=== PATIENT | male | born 1965 | race Caucasian/White ===

== ENCOUNTER 2018-06-27 05:57 | Day surgery (SDC) | payer OTHER ==
[~2018-06-27 05:57] MED LIST: LOTREL 5-20 MG1 CAP PO; PREVACID30 M1 PO; PROVASTATIN PO; ZANTAC300 MG PO
[2018-06-27] MEDS ORDERED: RECTICARE30 GM TOP (08:39)
[2018-06-27] MEDS ORDERED: PERCOCET 5-3251 EACH PO (08:39)
[2018-06-27] MEDS ORDERED: ULTRACET PO (10:12)
== END 2018-06-27 17:30 | disposition home or self-care (01) ==
LOC: CIR.AMB 05:57
DX: K64.2 Third degree hemorrhoids (principal)

== ENCOUNTER 2022-01-22 08:49 | Day surgery (SDC) | payer OTHER ==
[~2022-01-22 08:49] MED LIST changes: +PERCOCET 5-3251 EACH PO; +RECTICARE30 GM TOP; +ULTRACET PO; +[UNRECOGNIZED DRUG - OTHER] PO
== END 2022-01-22 14:45 | disposition home or self-care (01) ==
LOC: CIR.AMB 08:49
PROVIDERS: ATTEND Orthopaedic Surgery
DX: M77.11 Lateral epicondylitis, right elbow (principal); M24.821 Other specific joint derangements of right elbow, not elsewhere classified; M67.931 Unspecified disorder of synovium and tendon, right forearm; Z88.8 Allergy status to other drugs, medicaments and biological substances; Z20.822 Contact with and (suspected) exposure to COVID-19; I10 Essential (primary) hypertension; Z86.16 Personal history of COVID-19; E11.9 Type 2 diabetes mellitus without complications; B19.10 Unspecified viral hepatitis B without hepatic coma

== ENCOUNTER → 2023-06-10 10:06 | Outpatient (CLI) | payer OTHER | END | disposition home or self-care (01) | LOC: NUCLEAR 06-03 11:00 | PROVIDERS: ATTEND Internal Medicine | DX: I73.9 Peripheral vascular disease, unspecified (principal); I87.2 Venous insufficiency (chronic) (peripheral); I82.409 Acute embolism and thrombosis of unspecified deep veins of unspecified lower extremity ==

== ENCOUNTER → 2023-06-11 10:12 | Outpatient (CLI) | payer OTHER | END | disposition home or self-care (01) | LOC: NUCLEAR 06-04 11:00 | DX: I73.9 Peripheral vascular disease, unspecified (principal); I87.2 Venous insufficiency (chronic) (peripheral); I82.409 Acute embolism and thrombosis of unspecified deep veins of unspecified lower extremity ==

== ENCOUNTER 2024-07-27 12:00 | Outpatient (CLI) | payer OTHER ==
[2024-07-27 13:11] LABS: HEMATOCRIT 42.8 % (39.0-48.0); HEMOGLOBIN 14.8 g/dL (13-16.00); MEAN CELL VOLUME 88.8 fL (80.0-100.00); MEAN CORPUSCULAR HEMOGLOBIN 30.6 pg (27.00-32.0); MEAN CORPUSCULAR HGB CONC 34.5 g/dl (32.0-36.0); PLATELET COUNT 200 K/uL (150-450); RED BLOOD COUNT 4.82 M/uL (4.00-6.00); RED CELL DISTRIBUTION WIDTH 12.9 % (11.5-14.5)
[2024-07-27 13:27] LABS: ALBUMIN 3.7 gm/dL (3.4-5.0); BILIRUBIN TOTAL 0.82 mg/dL (0.3-1.2); CALCIUM 9.8 mg/dL (8.5-10.1); CREATININE SERUM 1.18 mg/dL (0.70-1.30); GFR 62.97; GLOBULINA 3.3 G/DL (2.4-3.5); POTASSIUM 4.33 mEq/L (3.5-5.1)
== END 2024-07-27 12:13 | disposition home or self-care (01) ==
LOC: LAB 12:00
PROVIDERS: ATTEND Internal Medicine
DX: D50.9 Iron deficiency anemia, unspecified (principal); E11.9 Type 2 diabetes mellitus without complications

== ENCOUNTER 2024-07-27 12:58 | Outpatient (CLI) | payer OTHER | END 2024-07-27 13:07 | disposition home or self-care (01) | LOC: RAD 12:58 | PROVIDERS: ATTEND Internal Medicine | DX: K56.690 Other partial intestinal obstruction (principal) ==

== ENCOUNTER 2024-08-04 08:55 | Emergency (ER) | payer OTHER ==
[~2024-08-04] VITALS: Ht 182.9 cm; Wt 86.2 kg
[2024-08-04] MEDS ORDERED: 0.9 % SODIUM CHLORIDE 1,000 ML IV STA (09:43)
[2024-08-04] MEDS ORDERED: BARIUM SULFATE 450 ML ORAL.SUSP PO ONE (09:55)
[2024-08-04 10:10] LABS: HEMATOCRIT 43.9 % (39.0-48.0); HEMOGLOBIN 15.1 g/dL (13-16.00); MEAN CELL VOLUME 87.8 fL (80.0-100.00); MEAN CORPUSCULAR HEMOGLOBIN 30.3 pg (27.00-32.0); MEAN CORPUSCULAR HGB CONC 34.4 g/dl (32.0-36.0); PLATELET COUNT 256 K/uL (150-450); RED BLOOD COUNT 4.99 M/uL (4.00-6.00)
[2024-08-04 10:41] LABS: ALBUMIN 3.6 gm/dL (3.4-5.0); BILIRUBIN TOTAL 0.41 mg/dL (0.3-1.2); BILIRUBIN,CONJUGATED 0.15 mg/dL (0.0-0.2); BILIRUBIN,UNCONJUGATED 0.26 mg/dL (0.0-0.6); CALCIUM 10.1 mg/dL (8.5-10.1); CREATININE SERUM 1.25 mg/dL (0.70-1.30); GFR 58.92; POTASSIUM 4.19 mEq/L (3.5-5.1); TOTAL PROTEIN 7.3 gm/dL (6.4-8.2)
[2024-08-04 10:51] LABS: INR 1.07; PARTIAL THROMBOPLASTIN TIME 28.3 SECONDS (22.0-34.0); PROTHROMBIN TIME 11.6 SECONDS (9.0-11.5)
[2024-08-04 12:04] LABS: URINE APPEARANCE Clear; URINE BILIRRUBIN Negative (NEGATIVE); URINE BLOOD Negative; URINE COLOR Yellow; URINE GLUCOSE Negative (NEGATIVE); URINE KETONE Negative (NEGATIVE); URINE LEUKOCYTE Negative; URINE NITRATE Negative; URINE PROTEIN Negative (NEGATIVE); URINE UROBILINOGEN 0.2 E.U./dl
[2024-08-04 12:21] LABS: URINE RBC 2.6 uL (0.0-20.8)
[2024-08-04 12:22] LABS: URINE BACTERIA 3.6 uL (0.0-1933); URINE EPITHELIAL CELLS 0.3 uL (0.0-38.8); URINE WBC 1.7 uL (0.0-23.2)
== END 2024-08-04 15:49 | disposition home or self-care (01) ==
LOC: ER 08:58
PROVIDERS: General Practice
DX: R10.84 Generalized abdominal pain (principal); I10 Essential (primary) hypertension; Z88.8 Allergy status to other drugs, medicaments and biological substances